=== PATIENT | male | born 1975 | race Caucasian/White ===

== ENCOUNTER → 2018-07-29 | Outpatient (CLI) | payer SELFPAY | END | disposition home or self-care (01) | LOC: CLISVCS 16:36 | PROVIDERS: ATTEND Physician Assistant Surgical | DX: Z01.818 Encounter for other preprocedural examination (principal); S83.249A Other tear of medial meniscus, current injury, unspecified knee, initial encounter; R00.1 Bradycardia, unspecified; I44.0 Atrioventricular block, first degree; X58.XXXA Exposure to other specified factors, initial encounter; Y93.89 Activity, other specified; Y92.89 Other specified places as the place of occurrence of the external cause; Y99.8 Other external cause status | CPT/HCPCS: 93005 ==